=== PATIENT | male | born 1965 | race Caucasian/White ===

== ENCOUNTER 2020-09-27 08:29 | Day surgery (SDC) | payer BC ==
[~2020-09-27] VITALS: Ht 180.3 cm; Wt 93.4 kg
[~2020-09-27 08:29] MED LIST: COZAAR100 MG PO; PERCOCET 10-321 EAC1 PO
[2020-09-27 08:49] LABS: BASOPHILS 0.9 % (0-2); EOSINOPHILS 2.4 % (0-7); HEMATOCRIT 43.8 % (42.0-54.0); HEMOGLOBIN 14.8 g/dL (13.5-17.5); LYMPHOCYTES 33.5 % (15-50); MCH 32.1 pg (26.0-34.0); MCHC 33.8 g/dL (31.0-37.0); MEAN PLATELET VOLUME 8.4 fL (7.4-10.4); MONOCYTES 8.9 % (2-11); NEUTROPHILS 54.3 % (40-80); PLATELET COUNT 290 10x3/uL (130-400); RBC 4.61 10x6/uL (4.20-6.10); RDW 12.4 % (11.5-14.5); WBC 5.2 10x3/uL (4.8-10.8)
[2020-09-27 08:58] LABS: ANION GAP 16.3 mmol/L (8-16); CALCIUM 9.1 mg/dL (8.5-10.1); CARBON DIOXIDE 24.8 mmol/L (21.0-32.0); CREATININE - SERUM 1.1 mg/dL (0.6-1.3); POTASSIUM - SERUM 4.1 mmol/L (3.5-5.1)
[2020-09-27 10:11] VITALS: BP 112/70; Ht 180.3 cm; Wt 93.4 kg
--- NOTE | 2020-09-27 17:44 | NUR ---
IV D/C'D WITH CANNULA INTACT, PRESSURE HELD AND DRSG PLACED. DISCHARGE INSTRUCTIONS GIVEN AND PT VERBALIZED AN UNDERSTANDING. ARM IN SLING AND ICED. DISCHARGED WITHOUT C/O
--- NOTE | 2020-09-28 07:46 | OP ---
PATIENT NAME: ANNAMARIE SPANN MEDICAL RECORD: [id number] :69 LOCATION:[facility] ADMISSION DATE: SURGEON: GEN FOX DO DATE OF OPERATION: 09/27/2020 PROCEDURE PERFORMED: Right distal biceps tendon repair. PREOPERATIVE DIAGNOSIS: Right distal biceps tendon rupture. POSTOPERATIVE DIAGNOSIS: Right distal biceps tendon rupture. INDICATIONS: Mr. Spann is a 54-year-old male who was lifting something and felt a pop in his elbow really, had an MRI showing distal biceps tendon rupture. This was about 2 weeks ago, I believe. It showed 8 cm of retraction of the distal biceps tendon. I told him that I would try to get it through one incision in order to fish out the distal biceps tendon and he was okay with that. He is aware of the risks of this including infection, bleeding, fracture, damage to nerves, vessels, especially the lateral antebrachial cutaneous nerve and continued pain, elbow contracture, retear and even and he signed the consent. SURGEON: Gen Fox DO DESCRIPTION OF PROCEDURE: The patient received a block by anesthesia in the preoperative area, was taken to the operative suite, laid in supine position, given 2 grams of Ancef preoperatively and sedated and LMA was placed. The right upper extremity was then prepped and draped in sterile fashion. Timeout was performed. Everyone was in agreement with the correct site, side, patient, and procedure. I then made longitudinal incision 2 fingerbreadths distal to the elbow crease. I made careful dissection down to the bicipital tuberosity of the radius. I then used a long end of Topicmarks and dissected out the long head of the biceps tendon, which was quite retracted up into the proximal arm. I grabbed with an Allis and then whipstitched it and cleaned off the distal tendon. I then put the pin in the radius with the arm supinated and the bicipital tuberosity angling it distally and ulnarly. I then put a 4.5 drill over that and then bicortically and then a unicortical 8-mm drill. I then tied the button on to the distal biceps tendon and put the button through the radius and flipped on the dorsal side and then cinched down the distal biceps tendon into the unicortical hole that I made on the volar side while flexing the arm. I then coagulated bleeding with a pickup and a Bovie. Then irrigated, closed the skin with 2-0 Vicryl in inverted interrupted fashion, 4-0 Monocryl running in the skin and Steri-Strips, Adaptic, 4 x 4, and cast padding and a 4 x 30 splint placed posteriorly and secured with an Merlin wrap. He was awakened and taken to recovery in stable condition. BLOOD LOSS: Minimal. COMPLICATIONS: None. TRANSINT:[id number] Voice Confirmation ID: [id number] DOCUMENT ID: [id number] OPERATIVE REPORT [id number] ANNAMARIE SPANN MICHAEL D, DO at 0746 CC: [id number] DICTATION DATE: 09/27/20 1634 PROJECT CONSTRUCTION MANAGER: 09/27/202127 [facility] 09/27/20 [facility] [address] [place] [address]
== END 2020-09-27 17:56 | disposition home or self-care (01) ==
LOC: D.OPS 08:29
PROVIDERS: Anesthesiology; ATTEND Orthopaedic Surgery
DX: S46.291A Other injury of muscle, fascia and tendon of other parts of biceps, right arm, initial encounter (principal); X58.XXXA Exposure to other specified factors, initial encounter; M25.521 Pain in right elbow